=== PATIENT | male | born 1975 | race Caucasian/White ===

== ENCOUNTER 2025-07-15 09:17 | Day surgery (SDC) | payer BC ==
[~2025-07-15] VITALS: Ht 188 cm; Wt 90.0 kg
[~2025-07-15 09:17] MED LIST: ACID REDUCER20 MG PO; ARNUITY ELLIPT50 MCG NAS; BUPROPION XL300 MG PO; SENNA8.6 MG PO; SINGULAIR10 MG PO; SYMBICORT 16010.2 GM INH; VENTOLIN HFA18 GM INH
[2025-07-15 09:33] VITALS: BP 125/74
[2025-07-15] MEDS ORDERED: LIDOCAINE HCL 2% 5 ML SDV ONE (10:09)
[2025-07-15] MEDS ORDERED: LACTATED RINGER'S 1,000 ML IV SCH (10:30)
[2025-07-15 11:56] VITALS: BP 127/70
--- NOTE | 2025-07-15 12:17 | NUR ---
07/15/25 1217 Hayden Pandya 1100-PT ARRIVED TO PACU ON 4L/NC, ASLEEP, NON-AROUSABLE TO TACTILE STIMULI. BREATHING APPEARS EVEN AND UNLABORED. 1105-PT REMAINS ASLEEP. SAO2 STABLE ON 4L/NC. IV SITE ASSESSED. 1108-PT WAKING AND REMOVED NC. SATS REMAIN STABLE ON RA AT 94-100%. PT DENIES N/V WHEN ASKED. PT ALSO DENIES PAIN OR DISCOMFORT. 1110-PT DROWSY AND DOZING ON AND OFF. SATS DECREASED TO MID 80'S. PT AROUSES EASILY AND EDUCATED ON DEEP BREATHING AND COUGHING. SATS QUICKLY IMPROVED TO 92% OR GREATER. 1114-PT MORE ALERT AND ANSWERS QUESTIONS APPROPRIATELY. PT PROVIDED ICE WATER AND IS TAKING SMALL SIPS. PT DENIES PAIN OR DISCOMFORT. NO DRAINAGE OR BLEEDING NOTED IN THROAT. 1127-DR. ANTOINE AT BEDSIDE TO DISCUSS CASE WITH PT. 1130-PT PROVIDED W/VERBAL AND WRITTEN DC INSTRUCTIONS. ALL QUESTIONS ANSWERED. PT VERBALIZED UNDERSTANDING. 1137-PT DRESSING FOR DC HOME. CALLED FOR RIDE. 1140-IV REMOVED. TIP APPEARS INTACT. PRESSURE DRSG APPLIED W/GAUZE AND COBAN. 1142-PT DISCHARGED FROM PACU TO PASSENGER SIDE OF WIFES VEHICLE. ALL PERSONAL BELONGINGS TAKEN WITH PT.
[2025-07-17] MEDS ORDERED: LACTATED RINGER'S 1,000 ML IV SCH (05:00)
[2025-07-17] MEDS ORDERED: IBLOOD GLUCOSE TEST STRIP 1 EA TEST VI PRN (07:00)
[2025-07-17] MEDS ORDERED: LIDOCAINE HCL 1% 5 ML SDV INJ ONE (07:00)
--- NOTE | 2025-07-17 20:47 | OR ---
[facility] [address] [place], [place] [address] Signed DATE OF OPERATION: 07/15/2025 SURGEON: Annie Dickens DO PREOPERATIVE DIAGNOSIS: Dysphagia and GERD symptoms. POSTOPERATIVE DIAGNOSES: 1. Dysphagia and GERD symptoms with distal esophageal stricture. 2. LA grade C distal esophagitis. 3. Punctate gastritis. PROCEDURES PERFORMED: 1. Esophagogastroduodenoscopy with biopsy of the GE junction and biopsy of the gastric body. 2. Balloon dilation of distal gastric stricture. ANESTHESIA: IV sedation. ESTIMATED BLOOD LOSS: None. DRAINS: None. COMPLICATIONS: None. DESCRIPTION OF PROCEDURE: The patient was brought to the GI lab, placed in supine position. After induction of IV sedation through preanesthetized oropharynx and a bite block, the Olympus video endoscope was introduced into the mouth, directed through the mouth and into the distal esophagus. Upon encountering distal esophagus, LA grade C distal esophagitis was noted with evidence of linear ulcerations that are present and significant band of esophagitis circumferentially. No evidence of apparent Leggett's was noted, but biopsies were taken and passed off the field for pathologic review. Just below this area and the GE junction, distal esophageal stricture was noted. Scope did pass through there, although it was snugged. Scope was then placed into the stomach. The stomach was insufflated. Exploration was carried out. Some punctate gastritis at the distal stomach and antrum, Electronically Signed By: ANNIE DICKENS DO 07/17/25 2047 PATIENT NAME: BERLIN ROSALES OPERATIVE REPORT DATE OF : 79 REPORT #: [id number] PHYSICIAN: ANNIE DICKENS DO PCP: MANJULA QUIJANO MD REPORT IS CONFIDENTIAL AND NOT TO BE RELEASED WITHOUT AUTHORIZATION [facility] [address] [facility] [place], [place] [address] Signed biopsies were taken, passed off the field for pathologic review. The scope was then passed through the pylorus, 1st and 2nd portion of the duodenum essentially unremarkable. Scope was then brought back into the stomach, retroflexed on itself. No evidence of hiatal hernia was noted. Scope was then brought back to the region of the lower esophageal stricture. A dilator was placed across the circumference of the stricture itself. Utilizing sequential dilations and overtime, the stricture was then dilated to approximately 40-Bolivian both before and after pictures were taken noted. Satisfactory dilation of the stricture. No bleeding was noted. No injury was noted. The stomach was decompressed. Scope was withdrawn and the patient tolerated the procedure well. Annie Dickens DO RS/MODL /[id number] Copies: ~ Electronically Signed By: ANNIE DICKENS DO 07/17/25 2047 PATIENT NAME: BERLIN ROSALES OPERATIVE REPORT DATE OF : 79 REPORT #: [id number] PHYSICIAN: ANNIE DICKENS DO PCP: MANJULA QUIJANO MD REPORT IS CONFIDENTIAL AND NOT TO BE RELEASED WITHOUT AUTHORIZATION
--- NOTE | 2025-07-19 18:28 | PATH ---
[facility] [address] [place], [place] [address] Signed SPECIMEN(S): A EG JUNCTION BIOPSY SPECIMEN(S): B RANDOM STOMACH BIOPSY SPECIMEN SOURCE: A. EG JUNCTION BIOPSY B. RANDOM STOMACH BIOPSY CLINICAL HISTORY: Pre-Dysphagia and GERD. Post-esophageal ulcers, Fisher grade C esophagitis, distal gastric ulcers A/B) biopsy FINAL PATHOLOGIC DIAGNOSIS: A. EG junction biopsy: - Esophageal and gastric mucosa with reactive features and mild chronic inflammation. - Negative for specialized intestinal metaplasia or dysplasia. B. Random stomach biopsy: - Benign gastric mucosa with focal slight chronic inflammation. - Negative for evidence of Helicobacter organisms on routine HE stained sections. JVR:[facility] MICROSCOPIC EXAMINATION: Histologic sections of all submitted blocks are examined by light microscopy. These findings, together with the gross examination, support the pathologic diagnosis. GROSS DESCRIPTION: A. The specimen, labeled and designated "Pam, EG junction biopsy," is received in formalin and consists of one tapia soft tissue fragment, 0.5 cm. Entirely submitted in (A1). B. The specimen, labeled and designated "Pam, random stomach biopsy," is received in formalin and consists of one tapia soft tissue fragment, 0.5 cm. Entirely submitted in (B1). AB (under the direct supervision of a pathologist) The Gross Description was prepared using a voice recognition system. The report was reviewed for accuracy; however, sound-alike word errors, addition and/or deletions may occur. If there is any question about this report, please contact Client Services. PATIENT NAME: BERLIN RSOALES PATHOLOGY DATE OF : 79 REPORT #: [id number] PHYSICIAN: CASPER CROSS PCP: MANJULA QUIJANO MD REPORT IS CONFIDENTIAL AND NOT TO BE RELEASED WITHOUT AUTHORIZATION [address], [place] [address] Signed PERFORMING LABORATORY: Technical component was performed by [facility], [address] [place] [address] (CLIA# [id number]). Professional interpretation was performed by [facility] [address] [address] (CLIA#: [id number]). Diagnostician: Davey Maguire MD Pathologist Electronically Signed 07/19/2025 Copies: ~ PATIENT NAME: BERLIN ROSALES PATHOLOGY DATE OF : 79 REPORT #: [id number] PHYSICIAN: CASPER CROSS PCP: MANJULA QUIJANO MD REPORT IS CONFIDENTIAL AND NOT TO BE RELEASED WITHOUT AUTHORIZATION
== END 2025-07-15 11:42 | disposition home or self-care (01) ==
LOC: DS 09:17
PROVIDERS: ATTEND Surgery
PROC: 0DB68ZX Excision of Stomach, Via Natural or Artificial Opening Endoscopic, Diagnostic (ICD-10-PCS; principal; 2025-07-15 10:05)
PROC: 0D758ZZ Dilation of Esophagus, Via Natural or Artificial Opening Endoscopic (ICD-10-PCS; principal; 2025-07-15 10:05)
PROC: 0DB58ZX Excision of Esophagus, Via Natural or Artificial Opening Endoscopic, Diagnostic (ICD-10-PCS; principal; 2025-07-15 10:05)
DX: K22.2 Esophageal obstruction (principal); K21.00 Gastro-esophageal reflux disease with esophagitis, without bleeding; K29.60 Other gastritis without bleeding; J45.909 Unspecified asthma, uncomplicated; E78.2 Mixed hyperlipidemia; Z79.51 Long term (current) use of inhaled steroids; Z79.899 Other long term (current) drug therapy
CPT/HCPCS: 00731; C1726; J2003; J2704; J7121